=== PATIENT | female | born 1980 | race Caucasian/White ===

== ENCOUNTER 2016-10-05 05:35 | Day surgery (SDC) | payer OTHER ==
[~2016-10-05] VITALS: Ht 175.3 cm; Wt 115.2 kg
[2016-10-05 06:24] VITALS: O2SAT 95
[2016-10-05] MEDS ORDERED: CEFAZOLIN SOD 1 GM in D5W 50 ML IV ONE (08:00)
[2016-10-05] MEDS ORDERED: LR 1,000 ML IV SCH (08:39)
[2016-10-05] MEDS ORDERED: ONDANSETRON HCL 4 MG/2 ML VIAL IVP PRN ×2 (08:45→10:00)
[2016-10-05] MEDS ORDERED: MEPERIDINE HCL/PF 25 MG/ML DISP.SYRIN IVP PRN ×2 (08:45)
[2016-10-05] MEDS ORDERED: KETOROLAC TROMETHAMINE 30 MG VIAL IVP PRN (08:45)
[2016-10-05] MEDS ORDERED: HYDROmorphone 2 MG/ML VIAL IVP PRN ×2 (08:45)
[2016-10-05] MEDS ORDERED: HYDROmorphone 1 MG INJ. 1 MG/ML AMPUL IVP PRN (08:45)
[2016-10-05] MEDS ORDERED: OXYCODONE/ACETAMINOPHEN 5-325 TABLET PO PRN ×2 (10:00)
[2016-10-05] MEDS ORDERED: HYDROcodone/ACETAMIN 5-325 MG TAB (NORCO/ VICODIN) PO PRN (10:00)
[2016-10-05 10:50] VITALS: BP 132/91; PULSE 83; RESP 16; TEMP 75
[2016-10-05] MEDS ORDERED: fentaNYL CITRATE 250 MCG/5 ML AMP IV ONE (11:00)
[2016-10-05] MEDS ORDERED: ONDANSETRON HCL 4 MG/2 ML VIAL IVP ONE (11:00)
[2016-10-05] MEDS ORDERED: METOCLOPRAMIDE HCL 10 MG/2 ML VIAL IVP ONE (11:00)
[2016-10-05] MEDS ORDERED: fentaNYL CITRATE/PF 100 MCG/2 ML AMP IVP ONE (11:00)
[2016-10-05] MEDS ORDERED: KETOROLAC TROMETHAMINE 30 MG VIAL IVP ONE (11:00)
[2016-10-05] MEDS ORDERED: MIDAZOLAM HCL 5 MG/5 ML VIAL IVP ONE (11:00)
[2016-10-05] MEDS ORDERED: METOPROLOL TARTRATE 5 MG/5 ML VIAL IVP ONE (11:00)
[2016-10-05] MEDS ORDERED: PROPOFOL 200MG/ 20ML VIAL (DIPRIVAN) IV ONE (11:00)
[2016-10-05] MEDS ORDERED: SEVOFLURANE 15 MIN GAS INH ONE (11:00)
[2016-10-05] MEDS ORDERED: SUGAMMADEX SODIUM 200 MG/2 ML VIAL IV ONE (11:00)
[2016-10-05] MEDS ORDERED: ONDANSETRON HCL 4 MG/2 ML VIAL ONE (11:04)
== END 2016-10-05 12:45 | disposition home or self-care (01) ==
LOC: SMU 05:35 → SDS 05:35
PROVIDERS: ATTEND Specialist
DX: N73.6 Female pelvic peritoneal adhesions (postinfective) (principal); N94.89 Other specified conditions associated with female genital organs and menstrual cycle; Z90.710 Acquired absence of both cervix and uterus
CPT/HCPCS: 49329; 88305; C1727; C1782; C9399; J0690; J1885; J2250; J2405; J2704; J2765; J3010 ×2; J3490; J7060; J7120

== ENCOUNTER 2019-12-16 06:12 | Day surgery (SDC) | payer BC, SELFPAY ==
[~2019-12-16] VITALS: Ht 175.3 cm; Wt 93.0 kg
[2019-12-16] MEDS ORDERED: PROPOFOL 200MG/ 20ML VIAL (DIPRIVAN) IV ONE (07:44)
[2019-12-16] MEDS ORDERED: LR 1,000 ML IV.SOLN IV ONE (07:44)
[2019-12-16] MEDS ORDERED: DEXAMETHASONE SOD PHOSPHATE 4 MG/ML VIAL IVP ONE (07:44)
[2019-12-16] MEDS ORDERED: CEFAZOLIN 2 GM IVPB PREMIX 50 ML IV ONE ×2 (07:44→15:00)
[2019-12-16] MEDS ORDERED: ONDANSETRON HCL 4 MG/2 ML VIAL IVP ONE (07:44)
[2019-12-16] MEDS ORDERED: fentaNYL CITRATE 250 MCG/5 ML AMP IV ONE (07:44)
[2019-12-16] MEDS ORDERED: ISOFLURANE 15 MIN GAS INH ONE (07:44)
[2019-12-16] MEDS ORDERED: WATER FOR IRRIGATION,STERILE 1,000 ML IRRIG.SOLN IR ONE (07:44)
[2019-12-16] MEDS ORDERED: FUROSEMIDE 20 MG/2 ML VIAL IVP ONE (07:44)
[2019-12-16] MEDS ORDERED: CLINDAMYCIN 2% VAGINAL CREAM VG ONE (07:44)
[2019-12-16] MEDS ORDERED: SUCCINYLCHOLINE CHLORIDE 20 MG/ML(QUELICIN) IVP ONE (07:44)
[2019-12-16] MEDS ORDERED: NS IRRIG SOLN 1000 ML IR ONE (07:44)
[2019-12-16] MEDS ORDERED: DEXTROSE 50% JECT 50 ML DISP.SYRIN IVP ONE (07:44)
[2019-12-16] MEDS ORDERED: ROCURONIUM BROMIDE 10 MG/ML (ZEMURON) IV ONE (07:44)
[2019-12-16] MEDS ORDERED: BUPIVACAINE /EPINEPHRINE/PF 0.5% 30 ML VIAL INJ ONE (07:44)
[2019-12-16] MEDS ORDERED: MEPERIDINE HCL/PF 25 MG/ML DISP.SYRIN IVP PRN (08:45)
[2019-12-16] MEDS ORDERED: HYDROmorphone 1 MG INJ. 1 MG/ML AMPUL IVP PRN (08:45)
[2019-12-16] MEDS ORDERED: ONDANSETRON HCL 4 MG/2 ML VIAL IVP PRN ×2 (08:45→11:30)
[2019-12-16] MEDS ORDERED: HYDROcodone/ACETAMIN 5-325 MG TAB (NORCO/ VICODIN) PO PRN (11:30)
[2019-12-16] MEDS ORDERED: OXYCODONE/ACETAMINOPHEN 5-325 TABLET PO PRN ×2 (11:30)
[2019-12-16] MEDS ORDERED: HYDROmorphone 1 MG INJ. 1 MG/ML AMPUL ONE (11:42)
[2019-12-16 12:34] VITALS: BP_SYST 122
[2019-12-16] MEDS ORDERED: OXYCODONE/ACETAMINOPHEN 5-325 TABLET ONE (12:47)
[2019-12-16] MEDS ORDERED: KETOROLAC TROMETHAMINE 30 MG VIAL IVP ONE (15:00)
== END 2019-12-16 18:20 | disposition home or self-care (01) ==
LOC: SDS 06:12 → SMU 06:12 → SDS 18:20
PROVIDERS: ATTEND Specialist
DX: N83.201 Unspecified ovarian cyst, right side (principal); N83.202 Unspecified ovarian cyst, left side; N73.6 Female pelvic peritoneal adhesions (postinfective); N81.6 Rectocele; N94.19 Other specified dyspareunia; N81.11 Cystocele, midline; N39.3 Stress incontinence (female) (male); E03.9 Hypothyroidism, unspecified; Z79.899 Other long term (current) drug therapy; F32.9 Major depressive disorder, single episode, unspecified; Z11.59 Encounter for screening for other viral diseases
CPT/HCPCS: 57260; 58661; 88302; 88305; C1727; C1771; J0330; J0690; J1100; J1170; J1940; J2405; J2704; J3010; J3490; J7120; U0002; E0190